=== PATIENT | male | born 1970 | race American Indian/Alaskan Native ===

== ENCOUNTER 2017-02-19 23:39 | Emergency (ER) | payer OTHER ==
[2017-02-20] MEDS ORDERED: NACL 0.9% 1000 ML 1,000 ML IV ONE (00:39)
[2017-02-20] MEDS ORDERED: TRIPLE ANTIBIOTIC TP ONE ×2 (00:50→03:56)
[2017-02-20] MEDS ORDERED: BOOSTRIX IM ONE (00:50)
[2017-02-20 01:00] LABS: Basophils % (Auto) 0.7 % (0.0-1.8); Eosinophils % (Auto) 0.7 % (0.0-4.3); Hematocrit 41.9 % (35.5-45.6); Hemoglobin 14.2 gm/dl (11.8-15.2); Mean Corpuscular HGB Conc 34 % (32-34); Mean Corpuscular Hemoglobin 29 pg (28-32); Mean Corpuscular Volume 85 fl (84-94); Platelet Count 165 K/mm3 (140-440); Red Blood Count 4.93 M/mm3 (3.65-5.03); Red Cell Distribution Width 14.4 % (13.2-15.2); White Blood Count 8.3 K/mm3 (4.5-11.0)
[2017-02-20] MEDS ORDERED: NACL ONE (01:03)
[2017-02-20 01:26] LABS: Albumin 4.1 g/dL (3.9-5); Albumin/Globulin Ratio 1.5 %; Anion Gap 17 mmol/L; BUN/Creatinine Ratio 18; Blood Urea Nitrogen 18 mg/dL (9-20); Calcium 8.9 mg/dL (8.4-10.2); Carbon Dioxide 25 mmol/L (22-30); Chloride 100.9 mmol/L (98-107); Glucose 95 mg/dL (75-100); Sodium 136 mmol/L (137-145); Total Protein 6.8 g/dL (6.3-8.2)
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
[2017-02-20 02:07] LABS: Alanine Aminotransferase 27 units/L (7-56); Alkaline Phosphatase 26 units/L (35-129)
[2017-02-20 02:10] LABS: Potassium 6.6 mmol/L (3.6-5.0)
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
[2017-02-20] MEDS ORDERED: TYLENOL PO ONE (03:17)
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
[2017-02-20 03:35] LABS: Anion Gap 18 mmol/L; BUN/Creatinine Ratio 18; Blood Urea Nitrogen 18 mg/dL (9-20); Calcium 8.8 mg/dL (8.4-10.2); Carbon Dioxide 23 mmol/L (22-30); Chloride 104.6 mmol/L (98-107); Glucose 85 mg/dL (75-100); Potassium 4.2 mmol/L (3.6-5.0); Sodium 141 mmol/L (137-145)
[2017-02-20 03:36] LABS: Urine Drugs of Abuse Note Disclamer
[2017-02-20 03:46] LABS: Bilirubin,Urine NEG (Negative); Blood,Urine NEG (Negative); Ketones,Urine NEG (Negative); Leukocyte Esterase,Urine NEG (Negative); Mucus,Urine FEW /HPF; Nitrite,Urine NEG (Negative); Protein,Urine <15 mg/dL mg/dL (Negative); Urobilinogen,Urine < 2.0 mg/dL (<2.0); WBC,Urine < 1.0 /HPF (0.0-6.0)
[2017-02-20] MEDS ORDERED: PEPCID IV ONE (03:56)
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
[2017-02-20 04:37] VITALS: BP 113/66
== END 2017-02-20 04:37 | disposition home or self-care (01) ==
LOC: ED 23:39
DX: S09.90XA Unspecified injury of head, initial encounter (principal); S40.812A Abrasion of left upper arm, initial encounter; M89.9 Disorder of bone, unspecified; M54.2 Cervicalgia; R10.2 Pelvic and perineal pain; Z79.899 Other long term (current) drug therapy; V89.2XXA Person injured in unspecified motor-vehicle accident, traffic, initial encounter; Y93.89 Activity, other specified; Y99.8 Other external cause status; Y92.410 Unspecified street and highway as the place of occurrence of the external cause
CPT/HCPCS: 36415; 70450; 71260; 72125; 72170; 73090; 74177; 80048; 80053; 80307; 81001; 85025; 90471; 90715; 96360; 99285; G0480; J7030; Q9967; 80320; A6250

== ENCOUNTER 2018-04-02 08:27 | Emergency (ER) | payer OTHER ==
[2018-04-02] MEDS ORDERED: NACL 0.9% 500 ML 500 ML IV ONE (08:53)
[2018-04-02] MEDS ORDERED: TYLENOL PO ONE (09:10)
[2018-04-02] MEDS ORDERED: NACL 0.9% 1000 ML 1,000 ML ONE (09:24)
[2018-04-02] MEDS ORDERED: TYLENOL ONE (09:24)
[2018-04-02 09:30] LABS: Basophils # (Auto) 0.2 K/mm3 (0.0-0.1); Basophils % (Auto) 2.2 % (0.0-1.8); Eosinophils % (Auto) 0.1 % (0.0-4.3); Hematocrit 44.3 % (35.5-45.6); Hemoglobin 14.7 gm/dl (11.8-15.2); Lymphocytes # (Auto) 1.4 K/mm3 (1.2-5.4); Lymphocytes % (Auto) 20.5 % (13.4-35.0); Mean Corpuscular HGB Conc 33 % (32-34); Mean Corpuscular Volume 86 fl (84-94); Monocytes # (Auto) 0.2 K/mm3 (0.0-0.8); Monocytes % (Auto) 3.5 % (0.0-7.3); Platelet Count 152 K/mm3 (140-440); Red Blood Count 5.18 M/mm3 (3.65-5.03); Red Cell Distribution Width 13.4 % (13.2-15.2)
[2018-04-02 09:38] LABS: INR 1.17 (0.87-1.13)
[2018-04-02 09:42] LABS: Alanine Aminotransferase 19 units/L (7-56); BUN/Creatinine Ratio 8; Blood Urea Nitrogen 10 mg/dL (9-20); Calcium 8.5 mg/dL (8.4-10.2); Hemolysis Index 64
[2018-04-02 12:07] LABS: Bilirubin,Urine NEG (Negative); Blood,Urine NEG (Negative); Color,Urine Yellow (Yellow); Mucus,Urine 1+ /HPF; Protein,Urine <15 mg/dL mg/dL (Negative)
[2018-04-02] MEDS ORDERED: NACL 0.9% 1000 ML 1,000 ML IV ONE (12:48)
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
--- NOTE | 2018-04-02 14:12 | Emergency Department Report ---
ED General Adult HPI - General Chief complaint: Fever Stated complaint: GENERAL ILLNESS Time Seen by Provider: 04/02/18 09:07 Source: patient Mode of arrival: Wheelchair Limitations: No Limitations - History of Present Illness Initial comments: 47-year-old male HIV positive who is compliant with his medication. He states that he thinks that his viral load is undetectable. He does not know his CD4 count. He showed me a cell phone ab which revealed that he did have a detectable viral load in January and a CD4 count of greater than 1000. He's got to the emergency room today because of weakness, myalgias, arthralgias, some nausea and a fever. Temperature was 102.9. He did report a small amount of liquid stool. Patient tells me he has not had any serious infections to complicate his HIV status. He has not had any admissions to the hospital. He does not report any prior surgery. -: days(s) Associated Symptoms: denies other symptoms, fever/chills - Related Data Previous Rx's Medication Instructions Recorded Last Taken Type Naproxen [Naprosyn] 500 mg PO BID #14 tablet 02/20/17 Unknown Rx oxyCODONE /ACETAMINOPHEN [Percocet 1 tab PO Q6HR PRN #14 tablet 02/20/17 Unknown Rx 5/325] Allergies Allergy/AdvReac Type Severity Reaction Status Date / Time No Known Allergies Allergy Verified 02/20/17 01:07 ED Review of Systems ROS: Stated complaint: GENERAL ILLNESS Other details as noted in HPI Constitutional: chills (no rigors), fever Eyes: denies: eye pain, eye discharge, vision change ENT: denies: ear pain, throat pain Respiratory: denies: cough, shortness of breath, wheezing Cardiovascular: denies: chest pain, palpitations Endocrine: no symptoms reported Gastrointestinal: denies: abdominal pain, nausea, diarrhea Genitourinary: denies: urgency, dysuria Musculoskeletal: denies: back pain, joint swelling, arthralgia Skin: denies: rash, lesions Neurological: denies: headache, weakness, paresthesias Psychiatric: denies: anxiety, depression Hematological/Lymphatic: denies: easy bleeding, easy bruising ED Past Medical Hx - Past Medical History Previous Medical History?: Yes Hx HIV: Yes - Surgical History Past Surgical History?: No - Social History Smoking Status: Current Every Day Smoker Substance Use Type: None - Medications Home Medications: Home Medications Medication Instructions Recorded Confirmed Last Taken Type Naproxen [Naprosyn] 500 mg PO BID #14 tablet 02/20/17 Unknown Rx oxyCODONE /ACETAMINOPHEN [Percocet 1 tab PO Q6HR PRN #14 tablet 02/20/17 Unknown Rx 5/325] ED Physical Exam - General Limitations: No Limitations General appearance: alert, in no apparent distress - Head Head exam: Present: atraumatic, normocephalic - Eye Eye exam: Present: normal appearance, PERRL, EOMI. Absent: scleral icterus - ENT ENT exam: Present: normal orophraynx, mucous membranes moist - Neck Neck exam: Present: normal inspection. Absent: tenderness, meningismus - Respiratory Respiratory exam: Present: normal lung sounds bilaterally. Absent: respiratory distress - Cardiovascular Cardiovascular Exam: Present: regular rate, normal rhythm. Absent: systolic murmur, diastolic murmur, rubs, gallop - GI/Abdominal GI/Abdominal exam: Present: soft, normal bowel sounds. Absent: distended, tenderness, guarding, rebound - Rectal Rectal exam: Present: deferred - Extremities Exam Extremities exam: Present: normal inspection - Back Exam Back exam: Present: normal inspection - Neurological Exam Neurological exam: Present: alert, oriented X3, CN II-XII intact. Absent: motor sensory deficit - Psychiatric Psychiatric exam: Present: normal affect, normal mood - Skin Skin exam: Present: warm, dry, intact, normal color. Absent: rash ED Course Vital Signs 04/02/18 04/02/18 04/02/18 08:50 09:15 09:41 Temperature 102.9 F H Pulse Rate 102 H 83 Respiratory 20 18 16 Rate Blood Pressure 130/64 Blood Pressure 97/52 [Left] O2 Sat by Pulse 95 98 96 Oximetry 04/02/18 04/02/18 04/02/18 11:00 11:38 12:00 Temperature 97.7 F Pulse Rate 84 72 63 Respiratory 16 17 21 Rate Blood Pressure 97/51 97/41 Blood Pressure 108/52 [Left] O2 Sat by Pulse 98 96 95 Oximetry 04/02/18 04/02/18 04/02/18 12:30 13:00 13:30 Temperature Pulse Rate 65 65 71 Respiratory Rate Blood Pressure 103/47 103/52 102/43 Blood Pressure [Left] O2 Sat by Pulse 96 100 97 Oximetry 04/02/18 14:00 Temperature Pulse Rate 70 Respiratory Rate Blood Pressure 103/40 Blood Pressure [Left] O2 Sat by Pulse 95 Oximetry - Reevaluation(s) Reevaluation #1: The patient has defervesced. He has 2 negative lactic acid levels. He is no criteria for sepsis. It appears he has a viral illness. On reexamination he looks improved. He is appropriate for outpatient disposition. 04/02/18 14:12 ED Medical Decision Making - Lab Data Result diagrams: 04/02/18 09:20 04/02/18 09:20 Laboratory Results - last 24 hr 04/02/18 04/02/18 04/02/18 09:20 09:20 09:20 WBC 6.8 RBC 5.18 H Hgb 14.7 Hct 44.3 MCV 86 MCH 29 MCHC 33 RDW 13.4 Plt Count 152 Lymph % (Auto) 20.5 [place] % (Auto) 3.5 Eos % (Auto) 0.1 Baso % (Auto) 2.2 H Lymph # 1.4 [place] # 0.2 Eos # 0.0 Baso # 0.2 H Seg Neutrophils % 73.7 H Seg Neutrophils # 5.0 PT 15.3 H INR 1.17 H VBG pH Sodium 136 L Potassium 4.2 Chloride 101.4 Carbon Dioxide 22 Anion Gap 17 BUN 10 Creatinine 1.2 Estimated GFR > 60 BUN/Creatinine Ratio 8 Glucose 98 Lactic Acid Calcium 8.5 Total Bilirubin 0.50 AST 32 ALT 19 Alkaline Phosphatase 42 Total Protein 6.9 Albumin 4.0 Albumin/Globulin Ratio 1.4 Urine Color Urine Turbidity Urine pH Ur Specific [place] Urine Protein Urine Glucose (UA) Urine Ketones Urine Blood Urine Nitrite Urine Bilirubin Urine Urobilinogen Ur Leukocyte Esterase Urine WBC (Auto) Urine RBC (Auto) U Epithel Cells (Auto) Urine Mucus 04/02/18 04/02/18 04/02/18 09:20 09:20 11:35 WBC RBC Hgb Hct MCV MCH MCHC RDW Plt Count Lymph % (Auto) [place] % (Auto) Eos % (Auto) Baso % (Auto) Lymph # [place] # Eos # Baso # Seg Neutrophils % Seg Neutrophils # PT INR VBG pH 7.519 H Sodium Potassium Chloride Carbon Dioxide Anion Gap BUN Creatinine Estimated GFR BUN/Creatinine Ratio Glucose Lactic Acid 0.70 Calcium Total Bilirubin AST ALT Alkaline Phosphatase Total Protein Albumin Albumin/Globulin Ratio Urine Color Yellow Urine Turbidity Clear Urine pH 6.0 Ur Specific [place] 1.027 Urine Protein <15 mg/dl Urine Glucose (UA) Neg Urine Ketones Tr Urine Blood Neg Urine Nitrite Neg Urine Bilirubin Neg Urine Urobilinogen 2.0 Ur Leukocyte Esterase Neg Urine WBC (Auto) 1.0 Urine RBC (Auto) 8.0 U Epithel Cells (Auto) < 1.0 Urine Mucus 1+ 04/02/18 12:35 WBC RBC Hgb Hct MCV MCH MCHC RDW Plt Count Lymph % (Auto) [place] % (Auto) Eos % (Auto) Baso % (Auto) Lymph # [place] # Eos # Baso # Seg Neutrophils % Seg Neutrophils # PT INR VBG pH Sodium Potassium Chloride Carbon Dioxide Anion Gap BUN Creatinine Estimated GFR BUN/Creatinine Ratio Glucose Lactic Acid 0.60 L Calcium Total Bilirubin AST ALT Alkaline Phosphatase Total Protein Albumin Albumin/Globulin Ratio Urine Color Urine Turbidity Urine pH Ur Specific [place] Urine Protein Urine Glucose (UA) Urine Ketones Urine Blood Urine Nitrite Urine Bilirubin Urine Urobilinogen Ur Leukocyte Esterase Urine WBC (Auto) Urine RBC (Auto) U Epithel Cells (Auto) Urine Mucus - Radiology Data Radiology results: report reviewed (chest x-ray no acute process) Critical care attestation.: If time is entered above; I have spent that time in minutes in the direct care of this critically ill patient, excluding procedure time. ED Disposition Clinical Impression: Viral syndrome, HIV positive, Dehydration Disposition: DC-01 TO HOME OR SELFCARE Is pt being admited?: No Does the pt Need Aspirin: No Condition: Stable Instructions: Viral Syndrome (ED), Human Immunodeficiency Virus Infection (ED) Additional Instructions: Increase fluids. Tylenol as needed. Follow-up with your infectious disease specialist. Return to the emergency department any acute change or worsening symptoms. Referrals: BALDO YE [Primary Care Provider] - 3-5 Days Forms: Work/School Release Form(ED) Time of Disposition: 14:14
[2018-04-02 16:04] VITALS: BP 109/61
== END 2018-04-02 16:30 | disposition home or self-care (01) ==
LOC: ED 08:27
DX: E86.0 Dehydration (principal); B34.9 Viral infection, unspecified; Z21 Asymptomatic human immunodeficiency virus [HIV] infection status; F17.200 Nicotine dependence, unspecified, uncomplicated; M79.10 Myalgia, unspecified site
CPT/HCPCS: 36415; 71045; 80053; 81001; 82140; 82805; 85025; 85610; 87040; 87086; 96360; 96361; 99285; J7030